=== PATIENT | male | born 1955 | race Caucasian/White ===

== ENCOUNTER 2020-03-20 15:46 | Emergency (ER) | payer SELFPAY ==
[2020-03-20 15:47] VITALS: BP 169/90; PULSE 74; RESP 18; TEMP 36.6; O2SAT 97; BMI 21.7
--- NOTE | 2020-03-20 16:29 | CTR_ITS ---
PROCEDURE INFORMATION: Exam: CT Head Without Contrast Exam date and time: 03/20/2020 4:33 PM Age: 64 years old Clinical indication: Injury or trauma; Fall; Blunt trauma (contusions or hematomas); Additional info: Seizure TECHNIQUE: Imaging protocol: Computed tomography of the head without contrast. Radiation optimization: All CT scans at this facility use at least one of these dose optimization techniques: automated exposure control; mA and/or kV adjustment per patient size (includes targeted exams where dose is matched to clinical indication); or iterative reconstruction. COMPARISON: No relevant prior studies available. RADIATION DOSE METRICS: Total DLP (mGy-cm): 824.66 FINDINGS: Brain: No visible acute intracranial pathologic process, trauma, or hemorrhage.. Unremarkable white matter. No mass effect. No visible generalized cerebral edema or demyelination. Cerebral ventricles: No ventriculomegaly. Bones/joints: Unremarkable. No acute fracture. Paranasal sinuses: Mild chronic ethmoid sinusitis. No fluid levels. Mastoid air cells: Visualized mastoid air cells are well aerated. Soft tissues: Unremarkable. CT/CT head wo con* [id number] IMPRESSION: No acute intracranial abnormality. Radiation Dose CTDIVOL = (mGy): DLP = 824.66 (mGy-cm)
--- NOTE | 2020-03-20 16:29 | ECG_ITS ---
[facility] Test Date: 2020-03-20 Pat Name: Christian Banuelos Department: Room: Gender: Male Staffing Clerk: : 1955 Requested By: Lorraine Pérez I Order Number: [id number] Nell MD: Kd Green M.D. Measurements Intervals [place] Rate: 66 P: 35 WV: 158 QRS: 60 QRSD: 87 T: 54 QT: 379 QTc: 399 Interpretive Statements SINUS RHYTHM No previous ECG available for comparison Electronically Signed On 03-20-2020 17:59:34 CDT by Kd Green M.D. [id number]
--- NOTE | 2020-03-20 16:29 | XRR_ITS ---
PROCEDURE INFORMATION: Exam: XR Chest, 1 View Exam date and time: 03/20/2020 5:01 PM Age: 64 years old Clinical indication: Injury or trauma; Fall; Blunt trauma (contusions or hematomas); Additional info: Seizure TECHNIQUE: Imaging protocol: XR of the chest Views: 1 view. COMPARISON: No relevant prior studies available. FINDINGS: Lungs: Hyperinflation and suspected component of COPD/chronic bronchitis. Mild senile fibrosis. No visible active interstitial or alveolar airspace disease. Pleural space: Unremarkable. No pleural effusion. No pneumothorax. Heart/Mediastinum: Cardiac structures in configuration with arteriosclerosis. Bones/joints: Unremarkable for age. XR/XR chest 1V portable [id number] IMPRESSION: Nonacute.
[2020-03-20 16:30] VITALS: BP 137/81; PULSE 71; RESP 20; O2SAT 98
--- NOTE | 2020-03-20 16:30 | CTR_ITS ---
PROCEDURE INFORMATION: Exam: CT Thoracic Spine Without Contrast Exam date and time: 03/20/2020 4:33 PM Age: 64 years old Clinical indication: Injury or trauma; Fall; Initial encounter; Blunt trauma (contusions or hematomas); Additional info: Fall, back pain TECHNIQUE: Imaging protocol: Computed tomography images of the thoracic spine without contrast. Radiation optimization: All CT scans at this facility use at least one of these dose optimization techniques: automated exposure control; mA and/or kV adjustment per patient size (includes targeted exams where dose is matched to clinical indication); or iterative reconstruction. COMPARISON: No relevant prior studies available. RADIATION DOSE METRICS: Total DLP (mGy-cm): 1207.91 FINDINGS: Vertebrae: No fracture is identified. Discs/Spinal canal/Neural foramina: There is some mild degenerative changes in the thoracic spine with some anterior and lateral osteophytes at multiple levels. Soft tissues: Unremarkable. Lungs: There is a small calcified granuloma in the left lower lobe. There is some scarring at the lung apices. CT/CT thoracic spin wo con* [id number] IMPRESSION: No fracture is identified. Radiation Dose CTDIVOL = (mGy): DLP = 1207.91 (mGy-cm)
[2020-03-20 16:44] LABS: Basophils % 0.7 %; Eosinophils # 0.3 10^3/uL (0.0-0.8); Eosinophils % 4.6 %; Hematocrit 41.1 % (42.0-52.0); Hemoglobin 13.3 g/dL (11.7-16.6); Lymphocytes % 35.2 %; Mean Corpuscular HGB Conc 32.4 g/dL (30.0-36.0); Mean Corpuscular Hemoglobin 30.3 pg (28.0-34.0); Mean Corpuscular Volume 93.6 fL (80-94); Mean Platelet Volume 10.5 fL (7.4-10.4); Monocytes # 0.6 10^3/uL (0.2-0.9); Monocytes % 10.2 %; Neutrophils # 2.79 10^3/uL (1.8-7.7); Neutrophils % 48.8 %; Nucleated Red Blood Cells % 0 %; Platelet Count 303 10^3/cmm (130-400); Red Blood Count 4.39 10^6/uL (4.1-5.3); Red Cell Distribution Width 12.9 % (12.1-15.1); White Blood Count 5.7 10^3/uL (4.0-10.0)
[2020-03-20] MEDS: folic acid 1 MG, multivitamin inj 10 ML, thiamine 100 MG in sodium chloride 0.9% 1,000 ML 252.8 MG IV (16:48)
[2020-03-20 16:55] LABS: Alanine Aminotransferase 16 U/L (0-41); Albumin Level 4.6 g/dL (3.5-5.2); Alkaline Phosphatase 76 IU/L (40-130); Anion Gap 22.4 (5-19); Aspartate Amino Transferase 28 U/L (0-40); Blood Urea Nitrogen 11 mg/dL (8-23); Calcium 10.2 mg/dL (8.5-10.5); Carbon Dioxide 22 mmol/L (22-29); Chloride 102 mmol/L (98-107); Globulin 2.2 g/dL (1.3-4.6); Glomerular Filtration Rate 67.4 mL/min (90-130); Glucose 106 mg/dL (65-115); Osmolality Calculated 294 mOsm/kg (285-295); Potassium 4.4 mmol/L (3.5-5.1); Salicylate 0.6 mg/dL (3-10); Sodium 142 mmol/L (136-145); Total Bilirubin 0.2 mg/dL (0.15-1.2); Total Protein 6.8 g/dL (6.6-8.7)
[2020-03-20 16:56] LABS: Acetaminophen < 5.0 ug/mL (10-30); Alcohol Level < 10 mg/dL (0-10)
[2020-03-20 17:10] LABS: Add Urine Microscopic? YES; Bilirubin Urine Neg (Negative); Blood Urine Neg (Negative); Glucose Urine UA Norm (Normal); Ketones Urine Negative (Negative); Leukocyte Esterase Urine Negative (Negative); Nitrate Urine Negative (Negative); Protein Urine Trace (Negative); Urine Appearance Clear (CLEAR); Urine Color Yellow (Yellow); Urobilinogen Urine Norm (Negative); pH Urine 5 (5-7)
[2020-03-20 17:16] LABS: Amphetamines Screen Urine Positive (Negative); Barbiturates Screen Urine Negative (Negative); Benzodiazepines Screen Urine Positive (Negative); Cocaine Screen Urine Negative (Negative); Opiate Screen Urine Positive (Negative); PCP Screen Urine Negative (Negative); THC Screen Urine Positive (Negative)
[2020-03-20 17:21] LABS: Hyaline Casts Urine 15-25 /lpf
[2020-03-20 17:22] LABS: Add Urine Culture? No; Bacteria Urine TRACE /hpf; Squamous Epithelial Cell Urine 0-4 /hpf (0-5)
[2020-03-20 17:30] VITALS: BP 162/81; PULSE 73; RESP 14; O2SAT 96
[2020-03-20 18:30] VITALS: BP 155/85; PULSE 69; RESP 21; O2SAT 97
--- NOTE | 2020-03-20 18:39 | ED_ITS ---
HPI - Seizure General: Chief Complaint: Seizure Stated Complaint: FALL, SEIZURE Time Seen by Provider: 03/20/20 16:11 Source: patient Mode of arrival: EMS Limitations: no limitations History of Present Illness: HPI Narrative: Patient is a 64-year-old gentleman who is an alcoholic. The patient states that he drinks about a 12 pack every day. His last drink was about 2 days ago and today while he was standing over the sink his noticed that he had a seizure. Seizure lasted for about 30 seconds, and was a generalized tonic-clonic seizure. The patient was not postictal and quickly returned to his baseline. On evaluation in the emergency department patient was alert and oriented and was able to give me a full history. MD complaint: seizure Onset (ago): minute(s) (30) Description of Episode: tonic-clonic movement Duration of episode: 30 -: second(s) Witnessed: Yes - by Bystander () Trauma: No Seizure History: No Place: Home Possible Precipitating Event: alcohol withdrawal Associated symptoms: Deny chest pain, chills, confusion, cough, diaphoresis, fever(s), anorexia, malaise, rash, short of breath, syncope, weakness or other Treatments prior to arrival: none Review of Systems General: Reports: 10 or more systems reviewed and unremarkable except in HPI and below Const: Denies: fever(s), chills, malaise or diaphoresis Eyes: Denies: change in vision or blurry vision ENMT: Denies: throat pain, enlarged tonsils, odynophagia, hoarseness, mouth pain or swelling of lips/tongue Card: Denies: chest pain or syncope Resp: Denies: dyspnea, productive cough or non-productive cough GI: Denies: abdominal pain, nausea or vomiting : Denies: flank pain, dysuria, urinary frequency, urinary urgency or urinary hesitancy Musc: Reports: back pain; Denies: neck pain or extremity swelling Skin/Breast: Denies: rash, pruritus or erythema Neuro: Reports: seizure-like activity; Denies: confusion Endo: Denies: polyuria, polydipsia or tired all the time Physical Exam Const: COMMON NORMALS: no acute distress, average body habitus, patient oriented x3, no limitations, healthy appearing, alert and well nourished HENMT: COMMON NORMALS: normocephalic, atraumatic and moist oral mucous membranes HEAD & SCALP: normocephalic and atraumatic Neck/C-Spine: COMMON NORMALS: full ROM, supple, no meningeal signs, no JVD and No carotid bruits Resp: COMMON NORMALS: normal respiratory effort, No retractions, No use of accessory muscles, clear to auscultation bilaterally and percussion normal AUSCULTATION: clear to auscultation bilaterally PERCUSSION: percussion normal Cardio: COMMON NORMALS: no JVD, regular rate, regular rhythm, S1 normal heart sound present, S2 normal heart sound present, No gallops present (Cardio), No clicks present (Cardio), No murmurs present (Cardio), No rub (Cardio) and Peripheral pulses 2+ throughout RATE: regular rate RHYTHM: regular rhythm HEART SOUNDS: S1 normal heart sound present and S2 normal heart sound present PERIPHERAL PULSES: Peripheral pulses 2+ throughout GI: COMMON NORMALS: Normal to inspection, nondistended, normoactive bowel sounds present, Soft to palpation, non-tender, No hepatosplenomegaly present, no masses and no bruits PALPATION: Yes Soft to palpation and Yes No hepatosplen omegaly present Back/Pelvis: THORACIC SPINE/UPPER BACK: Yes thoracic spinal tenderness Extremity: COMMON NORMALS: normal to inspection, full ROM, capillary refill normal, no calf tenderness and no pedal edema Neuro: COMMON NORMALS: patient oriented x3 SENSORIUM/ORIENTATION: Yes alert MENINGEAL SIGNS: Yes no meningeal signs Skin: COMMON NORMALS: no rashes or lesions noted, no wounds, turgor normal, no jaundice, no petechiae and no mottling GENERAL SKIN EXAM: no rashes or lesions noted and turgor normal Course Reevaluation(s): Reevaluation #1: Discussed his lab and imaging findings with him. Negative for acute findings. Discussed with the patient and his about his likely diagnosis which I think may be alcohol withdrawal seizures. I advised him that he will probably benefit from hospital admission to monitor and manage withdrawal seizures and alcohol withdrawal, however both patient and his , more the patient, declined hospital admission. Patient states that his is disabled that he has to be at home to help her. Explained possible cause of illness with worsening seizures and possible threat to his life but he still insisted. Patient is alert and oriented and is able to make appropriate medical decisions. Patient and his agreed that the patient was no longer going to drink alcohol or use any drugs. states that they are serious about it. Because of this I have given him a prescription for Librium to help with possible withdrawal and advised on how to use it and effect of overdosing. Voiced understanding and are in agreement with the plan Time: 18:40 Vital Signs: Vital signs: Vital Signs Temperature 97.8 F 03/20/20 15:47 Pulse Rate 73 03/20/20 19:00 Respiratory Rate 21 H 03/20/20 19:00 Blood Pressure 159/86 03/20/20 19:00 Pulse Oximetry 96 03/20/20 19:00 MDM - Seizure MDM Narrative: Medical decision making narrative: Patient with clinical features consistent with an alcohol withdrawal seizure. Evaluation was unremarkable, however I felt it was safer for the patient to be admitted to the hospital. Patient and his declined hospital admissions and were insistent that the patient was going to quit drinking. Because the same determined diet to quit, especially his being so serious about it he is discharged home with a prescription for Librium. They are also advised to return for any concerns. Medical Records: Attestation: I reviewed the patient's medical records. Lab Data: Attestation: I reviewed the patient's lab results. Labs: Lab Results 03/20/20 03/20/20 03/20/20 Range/Units 14:40 14:40 16:45 WBC 5.7 (4.0-10.0) 10^3/ uL RBC 4.39 (4.1-5.3) 10^6/u L Hgb 13.3 (11.7-16.6) g/dL Hct 41.1 L (42.0-52.0) % MCV 93.6 (80-94) fL MCH 30.3 (28.0-34.0) pg MCHC 32.4 (30.0-36.0) g/dL RDW 12.9 (12.1-15.1) % Plt Count 303 (130-400) 10^3/c mm MPV 10.5 H (7.4-10.4) fL Neut % (Auto) 48.8 % Lymph % (Auto) 35.2 % [place] % (Auto) 10.2 % Eos % (Auto) 4.6 % Baso % (Auto) 0.7 % Neut # (Auto) 2.79 (1.8-7.7) 10^3/u L Lymph # (Auto) 2.0 (0.8-4.8) 10^3/u L [place] # (Auto) 0.6 (0.2-0.9) 10^3/u L Eos # (Auto) 0.3 (0.0-0.8) 10^3/u L Baso # (Auto) 0.0 (0.0-0.1) 10^3/u L Nucleated RBC % (a uto) 0 % Nucleated RBCs # 0.0 /100WBC Sodium 142 (136-145) mmol/L Potassium 4.4 (3.5-5.1) mmol/L Chloride 102 (98-107) mmol/L Carbon Dioxide 22 (22-29) mmol/L Anion Gap 22.4 H (5-19) BUN 11 (8-23) mg/dL Creatinine 1.1 (0.7-1.2) mg/dL GFR Calculation 67.4 L (90-130) mL/min Glucose 106 (65-115) mg/dL Calculated Osmolal ity 294 (285-295) mOsm/k g Calcium 10.2 (8.5-10.5) mg/dL Total Bilirubin 0.2 (0.15-1.2) mg/dL AST 28 (0-40) U/L ALT 16 (0-41) U/L Alkaline Phosphata se 76 (40-130) IU/L Total Protein 6.8 (6.6-8.7) g/dL Albumin 4.6 (3.5-5.2) g/dL Globulin 2.2 (1.3-4.6) g/dL Urine Color Yellow (Yellow) Urine Appearance Clear (CLEAR) Urine pH 5 (5-7) Ur Specific Gravit y 1.020 (1.005-1.030) Urine Protein Trace (Negative) Urine Glucose (UA) Norm (Normal) Urine Ketones Negative (Negative) Urine Blood Neg (Negative) Urine Nitrate Negative (Negative) Urine Bilirubin Neg (Negative) Urine Urobilinogen Norm (Negative) mg/dL Ur Leukocyte Niki ase Negative (Negative) Urine RBC None (0-2) /hpf Urine WBC None (0-5) /hpf Ur Squamous Epith Cells 0-4 H (0-5) /hpf Amorphous Sediment Not Reportable Urine Bacteria Trace (NONE) /hpf Hyaline Casts 15-25 H /lpf Salicylates 0.6 L (3-10) mg/dL Urine Opiates Scre en (Negative) ng/mL Acetaminophen < 5.0 L (10-30) ug/mL Ur Barbiturates Sc reen (Negative) ng/mL Ur Phencyclidine S crn (Negative) ng/mL Ur Amphetamines Sc reen (Negative) ng/mL U Benzodiazepines Scrn (Negative) ng/mL Urine Cocaine Scre en (Negative) ng/mL U Marijuana (THC) Screen (Negative) ng/mL Ethyl Alcohol < 10 (0-10) mg/dL 03/20/20 Range/Units 16:45 WBC (4.0-10.0) 10^3/ uL RBC (4.1-5.3) 10^6/u L Hgb (11.7-16.6) g/dL Hct (42.0-52.0) % MCV (80-94) fL MCH (28.0-34.0) pg MCHC (30.0-36.0) g/dL RDW (12.1-15.1) % Plt Count (130-400) 10^3/c mm MPV (7.4-10.4) fL Neut % (Auto) % Lymph % (Auto) % [place] % (Auto) % Eos % (Auto) % Baso % (Auto) % Neut # (Auto) (1.8-7.7) 10^3/u L Lymph # (Auto) (0.8-4.8) 10^3/u L [place] # (Auto) (0.2-0.9) 10^3/u L Eos # (Auto) (0.0-0.8) 10^3/u L Baso # (Auto) (0.0-0.1) 10^3/u L Nucleated RBC % (a uto) % Nucleated RBCs # /100WBC Sodium (136-145) mmol/L Potassium (3.5-5.1) mmol/L Chloride (98-107) mmol/L Carbon Dioxide (22-29) mmol/L Anion Gap (5-19) BUN (8-23) mg/dL Creatinine (0.7-1.2) mg/dL GFR Calculation (90-130) mL/min Glucose (65-115) mg/dL Calculated Osmolal ity (285-295) mOsm/k g Calcium (8.5-10.5) mg/dL Total Bilirubin (0.15-1.2) mg/dL AST (0-40) U/L ALT (0-41) U/L Alkaline Phosphata se (40-130) IU/L Total Protein (6.6-8.7) g/dL Albumin (3.5-5.2) g/dL Globulin (1.3-4.6) g/dL Urine Color (Yellow) Urine Appearance (CLEAR) Urine pH (5-7) Ur Specific Gravit y (1.005-1.030) Urine Protein (Negative) Urine Glucose (UA) (Normal) Urine Ketones (Negative) Urine Blood (Negative) Urine Nitrate (Negative) Urine Bilirubin (Negative) Urine Urobilinogen (Negative) mg/dL Ur Leukocyte Niki ase (Negative) Urine RBC (0-2) /hpf Urine WBC (0-5) /hpf Ur Squamous Epith Cells (0-5) /hpf Amorphous Sediment Urine Bacteria (NONE) /hpf Hyaline Casts /lpf Salicylates (3-10) mg/dL Urine Opiates Scre en Positive H (Negative) ng/mL Acetaminophen (10-30) ug/mL Ur Barbiturates Sc reen Negative (Negative) ng/mL Ur Phencyclidine S crn Negative (Negative) ng/mL Ur Amphetamines Sc reen Positive H (Negative) ng/mL U Benzodiazepines Scrn Positive H (Negative) ng/mL Urine Cocaine Scre en Negative (Negative) ng/mL U Marijuana (THC) Screen Positive H (Negative) ng/mL Ethyl Alcohol (0-10) mg/dL Imaging Data^: CXR: Attestation: I personally reviewed and interpreted this imaging study as follows: Radiologist's impression: [address] [address] XRay Report Signed Patient: Christian Banuelos #: [id number] : 6Acct#:[id number] Age/Sex: 64 / MADM Date: 03/20/20 Loc: ERRoom/Bed: Attending Dr: Ordering Provider/Ordering MD: Lorraine Pérez MD, [facility] [place] of Service: 03/20/20 Procedure(s): XR chest 1V portable [id number] Accession Number(s): [id number] Report Number: [id number] PROCEDURE INFORMATION: Exam: XR Chest, 1 View Exam date and time: 03/20/2020 5:01 PM Age: 64 years old Clinical indication: Injury or trauma; Fall; Blunt trauma (contusions or hematomas); Additional info: Seizure TECHNIQUE: Imaging protocol: XR of the chest Views: 1 view. COMPARISON: No relevant prior studies available. FINDINGS: Lungs: Hyperinflation and suspected component of COPD/chronic bronchitis. Mild senile fibrosis. No visible active interstitial or alveolar airspace disease. Pleural space: Unremarkable. No pleural effusion. No pneumothorax. Heart/Mediastinum: Cardiac structures in configuration with arteriosclerosis. Bones/joints: Unremarkable for age. XR/XR chest 1V portable [id number] IMPRESSION: Nonacute. Dictated By:Saul Plunkett Signed By:Rashad Plunkett Date/Time:03/20/201815 DD/ 13 CT Head: Attestation: I personally reviewed and interpreted this imaging study as follows: Radiologist's impression: [address] [address] [address] Scan Report Signed Patient: Christian Banuelos #: [id number] : 6Acct#:[id number] Age/Sex: 64 / MADM Date: 03/20/20 Loc: ERRoom/Bed: Attending Dr: Ordering Provider/Ordering MD: Lorraine Pérez MD, [facility] [place] Date of Service: 03/20/20 Procedure(s): CT head wo con* [id number] Accession Number(s): [id number] Report Number: [id number] PROCEDURE INFORMATION: Exam: CT Head Without Contrast Exam date and time: 03/20/2020 4:33 PM Age: 64 years old Clinical indication: Injury or trauma; Fall; Blunt trauma (contusions or hematomas); Additional info: Seizure TECHNIQUE: Imaging protocol: Computed tomography of the head without contrast. Radiation optimization: All CT scans at this facility use at least one of these dose optimization techniques: automated exposure control; mA and/or kV adjustment per patient size (includes targeted exams where dose is matched to clinical indication); or iterative reconstruction. COMPARISON: No relevant prior studies available. RADIATION DOSE METRICS: Total DLP (mGy-cm): 824.66 FINDINGS: Brain: No visible acute intracranial pathologic process, trauma, or hemorrhage.. Unremarkable white matter. No mass effect. No visible generalized cerebral edema or demyelination. Cerebral ventricles: No ventriculomegaly. Bones/joints: Unremarkable. No acute fracture. Paranasal sinuses: Mild chronic ethmoid sinusitis. No fluid levels. Mastoid air cells: Visualized mastoid air cells are well aerated. Soft tissues: Unremarkable. CT/CT head wo con* [id number] IMPRESSION: No acute intracranial abnormality. Radiation Dose CTDIVOL = (mGy): DLP = 824.66 (mGy-cm) Dictated By:Saul Plunkett Signed By:Rashad Plunkett Date/Time:03/20/201733 DD/ [address]: Attestation: I personally reviewed and interpreted this imaging study as maria esther aviles: Radiologist's impression: [place] [address] CT Scan Report Signed Patient: Christian Banuelos #: [id number] : 6Acct#:[id number] Age/Sex: 64 / MADM Date: 03/20/20 Loc: ERRoom/Bed: Attending Dr: Ordering Provider/Ordering MD: Lorraine Pérez MD, [facility] [place] Date of Service: 03/20/20 Procedure(s): CT thoracic spin wo con* [id number] Accession Number(s): [id number] Report Number: [id number] PROCEDURE INFORMATION: Exam: CT Thoracic Spine Without Contrast Exam date and time: 03/20/2020 4:33 PM Age: 64 years old Clinical indication: Injury or trauma; Fall; Initial encounter; Blunt trauma (contusions or hematomas); Additional info: Fall, back pain TECHNIQUE: Imaging protocol: Computed tomography images of the thoracic spine without contrast. Radiation optimization: All CT scans at this facility use at least one of these dose optimization techniques: automated exposure control; mA and/or kV adjustment per patient size (includes targeted exams where dose is matched to clinical indication); or iterative reconstruction. COMPARISON: No relevant prior studies available. RADIATION DOSE METRICS: Total DLP (mGy-cm): 1207.91 FINDINGS: Vertebrae: No fracture is identified. Discs/Spinal canal/Neural foramina: There is some mild degenerative changes in the thoracic spine with some anterior and lateral osteophytes at multiple levels. Soft tissues: Unremarkable. Lungs: There is a small calcified granuloma in the left lower lobe. There is some scarring at the lung apices. CT/CT thoracic spin wo con* [id number] IMPRESSION: No fracture is identified. Radiation Dose CTDIVOL = (mGy): DLP = 1207.91 (mGy-cm) Dictated By:Pineda Leon Signed By:Erin Leonigned Date/Time:03/20/201733 DD/ 31 EKG Data^: EKG 1: Attestation: I personally reviewed and interpreted this EKG as follows: EKG interpretation date: 03/20/20 EKG interpretation time: 16:40 Prior EKG tracings: available for review Interpretation: Normal sinus rhythm. Heart rate [address] changes. Normal EKG. No STEMI. Discharge Plan Discharge Patient Disposition: Home Clinical Impression: Alcohol withdrawal seizure Qualifiers: Complication of substance-induced condition: uncomplicated Qualified Code(s): F10.230 - Alcohol dependence with withdrawal, uncomplicated Condition: Stable Prescriptions: New chlordiazepoxide HCl 25 mg capsule See Rx Instructions .ROUTE .COMPLEX PRN (Reason: alcohol withdrawal) 4 Days Qty: 15 RF: 0 Continued Multiple Vitamins Tablet 1 tab PO DAILY RF: 0 methadone 10 mg Tablet See Rx Instructions .ROUTE .COMPLEX RF: 0 aspirin 81 mg Tablet,Delayed Release (Dr/Ec) 162 mg PO PRN RF: 0 Excedrin Migraine 250-250-65 mg Tablet 2 tab PO PRN RF: 0 AZO Urinary Tract Defense 162-162.5 mg Tablet 1 - 2 tab PO PRN RF: 0 Discharge Orders: Discharge Order (Routine); Ordered 03/20/20 Ordered By: Lorraine Pérez Referrals: DELMA Li, SURGICAL SCRUB TECHNICIAN [Family Provider] - 1-3 days Discharge Diet: Usual diet Discharge Activity: Increase activity as tolerated Patient Instructions: Alcohol Withdrawal (ED), Polysubstance Abuse (ED) Activity Restrictions/Additional Instructions: Return for any new or worsening symptoms. It is important to quit drinking alcohol as long-term effects may be severe on your health. Take the medications as prescribed. It is important to quit drinking alcohol, is also important to quit taking illicit drugs. Discharge Date/Time: 03/20/20 19:22 Coding Level of Care Code ED Curriculum Development Manager for Alaina Sherwood
[2020-03-20 19:00] VITALS: BP 159/86; PULSE 73; RESP 21; O2SAT 96
[2020-03-20] MEDS: ketorolac 30 mg/mL INJ IVP (19:08)
== END 2020-03-20 19:22 | disposition home or self-care (01) ==
PROVIDERS: Emergency Provider Family Medicine; Family Provider Nurse Practitioner Family
DX: F10.230 Alcohol dependence with withdrawal, uncomplicated (principal); Z79.82 Long term (current) use of aspirin
CPT/HCPCS: 12345; 70450; 71045; 72128; 80053; 80306; 80307; 81001; 85025; 93005; 96361; 96374; 96375; 99284; J1885; J3411; J3490; J7030